=== PATIENT | male | born 1970 | race Caucasian/White ===

== ENCOUNTER 2018-12-27 07:29 | Observation (INO) ==
[2018-12-27] MEDS ORDERED: ZOFRAN IV ONE (07:51)
[2018-12-27] MEDS ORDERED: NS 1,000 ML IV ONE (07:51)
[2018-12-27] MEDS ORDERED: DILAUDID IV ONE (07:58)
--- NOTE | 2018-12-27 08:03 | PROVIDER DOCUMENTATION ---
HPI-Abdominal Pain/GI Problem - General Chief Complaint: Abdominal Pain Stated Complaint: DIARRHEA Time Seen by Provider: 12/27/18 07:33 Source: patient Allergies/Adverse Reactions: Patient Allergies Allergy/AdvReac Type Severity Reaction Status Date / Time moxifloxacin HCl * Allergy ANAPHYLAXIS Verified 04/16/17 06:32 [From Avelox] Home Medications: Home Medication List Medication Instructions Recorded Confirmed Last Taken Type NK [No Home Medications] 04/16/17 04/16/17 Unknown History - History of Present Illness-ABD Nature of Presenting Problems: 48 y/o WM c/o LLQ abdo pain since Thursday. Pt states that his pain is similar to previous flair ups of diverticulitis. Pt denies any vomiting and last BM was this am. Abdominal Pain Onset Location: reports: LLQ Pain Radiation: reports: no radiation Quality of Pain: reports: aching, sharp Severity in ED: reports: moderate Onset/Duration: reports: gradual Timing: reports: still present, getting worse Activities at Onset: reports: light activity Exposure to sick contacts?: No Modifying Factors: improves with: movement, palpation Associated Symptoms: reports: nausea Last BM: this morning Dark Stools Present?: reports: none noticed Rectal Bleeding: reports: none Rectal Pain: reports: none # of Vomiting Episodes: 0 Emesis Description: reports: none Bruising or Bleeding Gums?: No Similar Symptoms Previously?: Yes Recently seen or treated by another doctor?: No Review of Systems - Adult - REVIEW OF SYSTEMS - ADULT Constitutional: reports: no symptoms reported, see HPI Eyes: reports: no symptoms reported, see HPI Ears, Nose, Mouth & Throat: reports: no symptoms reported, see HPI Cardiovascular: reports: no symptoms reported, see HPI Respiratory: reports: no symptoms reported, see HPI Gastrointestinal: reports: see HPI, abdominal pain, nausea Genitourinary: reports: no symptoms reported, see HPI Musculoskeletal: reports: no symptoms reported, see HPI Integumentary: reports: no symptoms reported, see HPI Neurological: reports: no symptoms reported, see HPI Psychiatric: reports: no symptoms reported, see HPI Endocrine: reports: no symptoms reported, see HPI Hematologic/Lymphatic: reports: no symptoms reported, see HPI Allergic/Immunologic: reports: no symptoms reported, see HPI All Other Systems: Reviewed and Negative Past History - Adult - PAST MEDICAL HISTORY-ADULT Review of Records: reports: Nursing Assessment Review, Medications Reviewed, Social history reviewed & non-contributory. Major Childhood Illnesses: reports: denies history Gastrointestinal: reports: GERD - PRIOR SURGERIES/PROCEDURES Surgical/Procedure History: reports: other (nasal sx) - IMMUNIZATION STATUS Childhood Immunizations: See Nurse Assessment Flu Vaccine: See Nurse Assessment Physical Exam-General - PHYSICAL EXAM-ADULT Initial Vital Signs Reviewed: Yes - CONSTITUTIONAL General Appearance: appears well, alert, no apparent distress - EYES Eyes: PERRL/EOMI - HEAD, EARS, NOSE, MOUTH & THROAT HENMT: normocephalic/atraumatic, moist mucous membranes - NECK Neck: non-tender, full range of motion, supple, normal inspection - RESPIRATORY Respiratory: chest non-tender, lungs clear, normal breath sounds, no pleuratic chest pain, no respiratory distress, no accessory muscle use - CARDIOVASCULAR Cardiovascular: normal peripheral pulses, regular rate, rhythm, no edema, no gallop, no JVD, no murmur - GASTROINTESTINAL (ABDOMEN) Abdominal Exam: normal bowel sounds, soft, no organomegaly, no pulsatile mass, tenderness (LLQ abdo pain) - LYMPHATIC Lymphatic: no adenopathy - MUSCULOSKELETAL Back Exam: normal inspection, no CVA tenderness, no vertebral tenderness Extremity: normal range of motion, non-tender, normal gait, normal inspection, no pedal edema, no calf tenderness, normal capillary refill - SKIN Integumentary: normal color, normal turgor - NEUROLOGIC Neurologic: organ builder II-XII nml as tested, grossly normal, no motor/sensory deficits - PSYCHIATRIC Psych/Mental Status: normal mood/affect, normal thought content, normal thought process, oriented x 3 Progress - PLAN OF CARE/RESULTS Progress/Plan/Lab Results: Vital Signs - 8 hr 12/27/18 07:37 Temperature 98 F Pulse Rate 107 H Respiratory Rate 18 Blood Pressure 135/92 Orders Category Date Time Status CT ABD/PELVIS W/IV CONT ONLY [CT] Stat Exams 12/27/18 07:50 Ordered AMYLASE [CHEM] Stat Lab 12/27/18 07:46 Received CBC WITH ELECTRONIC DIFF [HEME] Stat Lab 12/27/18 07:46 Results COMPREHENSIVE METABOLIC PANEL [CHEM] Stat Lab 12/27/18 07:46 Received LIPASE [CHEM] Stat Lab 12/27/18 07:46 Received ua [URINALYSIS PL W/POSS RFLX CULT] [URINALYSIS] Stat Lab 12/27/18 07:33 Uncollected 0.9% Sodium Chloride Inj [Ns] 1,000 ml Med 12/27/18 07:51 Active IV 999 mls/hr Ondansetron [Zofran] Med 12/27/18 07:51 Discontinued 4 mg IV NOW ONE Result Diagrams: 12/27/18 07:46 12/27/18 07:46 - CONSULTS/PCP/HOSPITALIST Notification #1 *Consult/PCP/Hospitalist*: Dr Coleman Time Discussed: 09:50 Consult Disposition: Will see in ED, Admit Departure - Departure Date of Disposition Decision: 12/27/18 Time of Disposition Decision: 09:51 DIAGNOSIS: Acute diverticulitis, HTN (hypertension) Disposition: ADMITTED INPATIENT 09 Certified Medical Emergency: Emergent Condition: Fair Referrals and Follow-Ups: Jr Mendoza MD [Primary Care Provider] - - Critical Care Note This patient required my direct & personal management of CC.: No Attestation - Physician/ OSCAR Attestation Patient care was provided by Advanced Practice Provider:: No The physician spent face to face time with patient:: Yes Advanced Practice Provider documentation review:: Supervising physician onsite and consulted in the evaluation and care of this patient. The physician did have a face to face encounter with the patient.
[2018-12-27 08:10] LABS: AGAP 12; ALBUMIN 4.9 g/dL (3.5-5.0); ALKALINE PHOSPHATASE 88 U/L (32-122); BUN 13 mg/dL (8-22); CHLORIDE 100 mmol/L (98-107); COSMO 283; ESTIMATED GFR > 60; GLUCOSE 125 mg/dL (70-104); GOT 21 U/L (10-34); GPT 34 U/L (10-44); LIPASE 22 U/L (13-60); POTASSIUM 4.6 mmol/L (3.5-5.1); SODIUM 141 mmol/L (136-145); TCO2 29 mmol/L (25-35); TOTAL PROTEIN 7.8 g/dL (6.3-8.3)
[2018-12-27 08:44] LABS: BASO# 0.03 X1000 (0.0-0.2); BASO% 0.2 % (0.0-0.8); EOS# 0.34 X1000 (0.0-0.7); EOS% 2.7 % (0.0-10.0); HEMATOCRIT 44.4 % (42.0-52.0); IMM GRAN# 0.02 X1000 (0.0-0.04); IMM GRAN% 0.2 % (0.0-0.5); LYMPH# 1.64 X1000 (1.2-3.4); LYMPH% 13.2 % (20.5-51.1); MCH 30.9 PG (27-31); MCHC 33.8 g/dL (33-37); MCV 91.5 FL (81-99); MONO# 1.35 X1000 (0.11-0.59); MONO% 10.8 % (1.7-9.3); NEUT# 9.08 X1000 (1.4-6.5); NEUT% 72.9 % (42.2-75.2); PLT 108 X1000 (130-400); RBC 4.85 XMIL (4.7-6.1); RDW 12.7 % (11.5-14.5); WBC 12.46 X1000 (4.8-10.8)
[2018-12-27 08:54] LABS: BILIRUBIN URINE NEGATIVE (NEGATIVE); BLOOD URINE NEGATIVE (NEGATIVE); CLARITY CLEAR (CLEAR); COLOR YELLOW; GLUCOSE URINE NEGATIVE (NEGATIVE); KETONE URINE NEGATIVE (NEGATIVE); LEUKOCYTES URINE NEGATIVE (NEGATIVE); NITRITE URINE NEGATIVE (NEGATIVE); PROTEIN URINE NEGATIVE (NEGATIVE); UROBILINOGEN URINE NORMAL
[2018-12-27 08:58] LABS: URINE BACTERIA 2+ /HFP; URINE EPITHELIAL CELLS <10 /HPF (<10); URINE RBC <10 /HPF (<10); URINE WBC <10 /HPF (<10); URINE YEAST NONE SEEN /HPF
[2018-12-27 08:59] LABS: URINE CAST NONE SEEN /LPF; URINE CRYSTAL NONE SEEN /HPF; URINE SOURCE CLEAN CATCH
--- NOTE | 2018-12-27 09:22 | Diag Imaging Result Doc PS360 ---
EXAM: CT ABD/PELVIS W/IV CONT ONLY HISTORY: LLQ pain. Possible diverticulitis TECHNIQUE: This exam was performed using automated exposure control, adjustment of mA or kV according to patient size, and/or use of iterative reconstruction technique. COMPARISON: None. FINDINGS: Lung bases: Unremarkable. There is focal wall thickening and moderate to marked pericolonic inflammatory change mid descending colon with fluid tracking along the psoas muscle compatible with acute diverticulitis. No evidence for diverticular abscess. No free air. No evidence for bowel obstruction. There is extensive sigmoid diverticulosis. Hepatobiliary: Normal liver attenuation. No intrahepatic or extrahepatic biliary ductal dilatation is identified. No calcified gallstones are seen. No suspicious masses are appreciated. Pancreas/Adrenal glands/Spleen: Normal size and enhancement. No cysts or solid masses are appreciated. Kidneys: No nephrolithiasis or hydronephrosis is appreciated. Normal bilateral enhancement. No suspicious masses. Retroperitoneum: Normal caliber aorta. Mildly prominent retroperitoneal lymph nodes. Appendix: Normal. No evidence for acute appendicitis. No pneumoperitoneum is identified. Pelvis: Reproductive organs show no acute abnormality. Urinary bladder is unremarkable. No lymphadenopathy is identified. There are no inflammatory changes. No acute bony abnormality is demonstrated. IMPRESSION: Moderate to marked acute diverticulitis descending colon. No evidence for diverticular abscess. Electronically signed by Rose Mccall 12/27/2018 9:19 AM
[2018-12-27] MEDS ORDERED: FLAGYL 500 MG/NS 500 MG/100 ML IVPB IV ONE (09:32)
[2018-12-27] MEDS ORDERED: TYLENOL PO PRN (10:21)
[2018-12-27] MEDS ORDERED: NS 1,000 ML IV PRN (10:21)
[2018-12-27] MEDS ORDERED: LEVAQUIN 750 MG/D5W 750 MG/150 ML IVPB IV SCH (10:30)
[2018-12-27] MEDS: ZOSYN 3.375 GM in NS 50 ML IV SCH ×3 (11:25→22:23)
[2018-12-27] MEDS ORDERED: PERICOLACE PO ONE (12:21)
[2018-12-27] MEDS: ZOFRAN IV PRN ×2 (12:45→17:32)
[2018-12-27] MEDS ORDERED: FLU VACCINE IM ONE (12:45)
[2018-12-27] MEDS: DILAUDID IV PRN ×2 (12:46→17:32)
[2018-12-27] MEDS: PRILOSEC PO SCH ×2 (12:46→20:11)
[2018-12-27] MEDS: NS 1,000 ML IV SCH (12:47)
--- NOTE | 2018-12-27 13:04 | HISTORY AND PHYSICAL ---
PRIMARY CARE PROVIDER: Dr. Jr Mendoza. CHIEF COMPLAINT: Abdominal pain and constipation. HISTORY OF PRESENT ILLNESS: Mr. Chucky Hendrix is a 48-year-old male with a medical history of diverticulitis. He states he gets around about at least every 6 months. He does tend to consume fruits and nuts, and healthy protein shakes. He also has seasonal allergies and hyperlipidemia, but comes in with complaints of at least 5 days worth of left lower quadrant abdominal pain. He states for the last 3 days he has had very small minute constipated type bowel movements. He did have some chills today and imaging reveals that he has descending colon diverticulitis, so we will admit, give him IV fluids, start him on antibiotics. PAST MEDICAL HISTORY: 1. Hyperlipidemia. 2. Seasonal allergies. 3. Diverticulitis every 6 months. SURGICAL HISTORY: Sinus surgery. SOCIAL HISTORY: Quit smoking in 2003. He smoked for 15 years anywhere from 1 to 2 packs per day. He drinks alcohol 5 days a week, usually just 1 glass of red wine with chocolate before he goes to bed. If he drinks beers, it is usually during a ball game and it is six-pack of beer. He denies illicit drug use. He is self-employed and owns a body shop. FAMILY HISTORY: Mother's side of the family, had grandmother that had a stroke. His father had high cholesterol. He had a brother who had testicular cancer. ALLERGIES: Moxifloxacin. HOME MEDICATIONS: None. REVIEW OF SYSTEMS: Fourteen point review of systems are complete and all were negative except for those mentioned above in HPI. He denied any nausea or vomiting. Just the constipation, left lower quadrant abdominal pain along with the chills. PHYSICAL EXAMINATION: VITAL SIGNS: Temperature is 98.9 degrees, heart rate 86, respiratory rate 18, blood pressure 135/85, O2 saturation 95% on room air. GENERAL: Mr. Chucky Hendrix is a 48-year-old male. He is in no acute distress. He is able to answer questions appropriately. HEENT: Atraumatic, normocephalic. Pupils equal, round, reactive to light. Extraocular movements intact. Mucous membranes are dry. NECK: Trachea midline. CARDIOVASCULAR: S1, S2. Regular rate and rhythm. No rubs, gallops, murmurs. No lower extremity edema. +2 dorsalis and radial pulses. Negative JVD or carotid bruits. PULMONARY: Clear to auscultate, bilateral breath sounds. No accessory muscle use or work of breathing noted. GASTROINTESTINAL: Soft, tender in the left lower quadrant. Positive bowel sounds x4. Soft. EXTREMITIES: Moves all extremities equally. Full range of motion. NEUROLOGIC: N and O x3. Follows commands. Sensory is intact. SKIN: Warm, dry, intact. LABORATORY DATA: White blood cells 12,000, hemoglobin 15, hematocrit 44, platelet count 108,000. Sodium 141, potassium 4.6, BUN 13, creatinine is 1.0, glucose 125, calcium 10.1, bilirubin 0.70, AST 21, ALT 34, albumin 4.9, amylase 72, lipase 22. Urinalysis negative. IMAGING: Abdominal pelvic CT, moderate to marked acute diverticulitis of the descending colon. No abscess. ASSESSMENT AND PLAN: 1. Acute diverticulitis of the descending colon. He is going to be on Zosyn and Flagyl, Dilaudid for pain control, IV fluids to hydrate. He can have clear liquids. Advance as tolerated. 2. Constipation. We will start him on Ragini-Colace. 3. Hyperlipidemia, on no home medications. 4. Seasonal allergies. Home medications have been listed for that as well. 5. Deep venous thrombosis prophylaxis, SCDs. Dictated by MONIQUE Cullen for Ede Coleman MD cc: MONIQUE Cullen MD
[2018-12-27] MEDS: FLAGYL 500 MG/NS 500 MG/100 ML IVPB IV SCH (18:44)
[2018-12-27] MEDS: PERICOLACE PO SCH (20:11)
--- NOTE | 2018-12-27 21:31 | HISTORY AND PHYSICAL ---
ADDENDUM: Patient seen and examined by myself. Full note dictated and discussed with nurse practitioner. Patient presented to the hospital with abdominal pain, cramping. He has never had symptoms like this before. Notes that his left lower quadrant started hurting a couple of days ago, but much more severe yesterday. Therefore, he came to the ER today. I am going to admit him to the hospital, treat him for diverticulitis, place him on antibiotics, fluids, pain control and will follow. Please see full note. cc: Ede Coleman MD
[2018-12-28] MEDS: NS 1,000 ML IV SCH ×3 (00:59→13:22)
[2018-12-28] MEDS: FLAGYL 500 MG/NS 500 MG/100 ML IVPB IV SCH ×3 (01:07→18:17)
[2018-12-28] MEDS: ZOSYN 3.375 GM in NS 50 ML IV SCH ×4 (04:15→22:09)
[2018-12-28 06:30] LABS: INR 0.95; PROTIME 13.2 Seconds (11.0-16.0)
[2018-12-28 06:31] LABS: PTT 29.6 Seconds (22.3-41.8)
[2018-12-28 06:36] LABS: AGAP 10; ALBUMIN 3.8 g/dL (3.5-5.0); ALKALINE PHOSPHATASE 71 U/L (32-122); BUN 9 mg/dL (8-22); CALCIUM 8.9 mg/dL (8.8-10.2); CHLORIDE 101 mmol/L (98-107); COSMO 269; CREATININE 0.9 mg/dL (0.7-1.2); ESTIMATED GFR > 60; GLUCOSE 111 mg/dL (70-104); GOT 13 U/L (10-34); GPT 21 U/L (10-44); POTASSIUM 4.2 mmol/L (3.5-5.1); SODIUM 135 mmol/L (136-145); TCO2 25 mmol/L (25-35); TOTAL PROTEIN 6.5 g/dL (6.3-8.3)
[2018-12-28 07:07] LABS: BASO# 0.02 X1000 (0.0-0.2); BASO% 0.2 % (0.0-0.8); EOS# 0.29 X1000 (0.0-0.7); EOS% 3.3 % (0.0-10.0); HEMATOCRIT 38.6 % (42.0-52.0); IMM GRAN# 0.02 X1000 (0.0-0.04); IMM GRAN% 0.2 % (0.0-0.5); LYMPH# 1.39 X1000 (1.2-3.4); LYMPH% 15.6 % (20.5-51.1); MCH 30.9 PG (27-31); MCHC 33.7 g/dL (33-37); MCV 91.7 FL (81-99); MONO# 0.97 X1000 (0.11-0.59); MONO% 10.9 % (1.7-9.3); MPV 10.6 FL (7.4-10.4); NEUT# 6.23 X1000 (1.4-6.5); NEUT% 69.8 % (42.2-75.2); PLT 98 X1000 (130-400); RBC 4.21 XMIL (4.7-6.1); RDW 12.2 % (11.5-14.5); WBC 8.92 X1000 (4.8-10.8)
[2018-12-28] MEDS: PRILOSEC PO SCH ×2 (09:38→21:43)
[2018-12-28] MEDS: PERICOLACE PO SCH ×2 (09:38→21:43)
--- NOTE | 2018-12-28 14:00 | PROGRESS NOTE ---
DATE: 12/28/2018 SUBJECTIVE: The patient reports abdominal pain is getting better. He is refusing Dilaudid because he said that he is going to get constipated, no other complaints other than that. OBJECTIVE: Vital Signs: Temperature 98.9 degrees, heart rate 87, respiratory rate 16, blood pressure 119/73, O2 saturation 97% on room air. General Examination: This is a 48-year-old male, lying in bed, in no acute distress. Cardiovascular: S1, S2 heard. No murmurs, gallops, or rubs. Regular rate and rhythm. Respiratory: Clear bilaterally to auscultation. No work of breathing or using accessory muscles. Abdomen: Soft, a little bit tender to palpation diffusely. No signs of peritoneal irritation. Extremities: No clubbing, cyanosis, or edema. Peripheral pulses present in both legs. Neurologic: The patient is alert and oriented x3. Moves all 4 extremities. LABORATORY DATA: White cell count 8000. BMP unremarkable. ASSESSMENT AND PLAN: 1. Acute diverticulitis. The patient continues with Zosyn, and also, we are going to add Toradol for pain control. White cell count is back to normal. We are going to advance his diet to GI soft diet. 2. Constipation. We will continue with Ragini-Colace and we will try MiraLAX if needed. 3. Hyperlipidemia. We will continue with home medications. 4. Disposition. I think this patient is doing much better. If he does tolerate a GI soft diet I guess tomorrow we can advance the diet to regular diet and discharge this patient. cc: Melchor Mckeon MD
[2018-12-28] MEDS: TORADOL IV SCH ×2 (14:14→19:52)
[2018-12-28] MEDS: MIRALAX PO SCH ×2 (17:19→21:43)
[2018-12-29] MEDS: FLAGYL 500 MG/NS 500 MG/100 ML IVPB IV SCH ×2 (01:12→11:12)
[2018-12-29] MEDS: TORADOL IV SCH ×3 (01:12→11:11)
[2018-12-29] MEDS: NS 1,000 ML IV SCH ×2 (01:12→11:11)
[2018-12-29] MEDS: ZOSYN 3.375 GM in NS 50 ML IV SCH (04:10)
[2018-12-29 05:56] LABS: AGAP 10; ALBUMIN 3.7 g/dL (3.5-5.0); ALKALINE PHOSPHATASE 65 U/L (32-122); BUN 9 mg/dL (8-22); CHLORIDE 106 mmol/L (98-107); COSMO 281; CREATININE 0.9 mg/dL (0.7-1.2); ESTIMATED GFR > 60; GLUCOSE 120 mg/dL (70-104); GOT 14 U/L (10-34); GPT 19 U/L (10-44); MAGNESIUM 2.2 mg/dL (1.5-2.7); POTASSIUM 4.4 mmol/L (3.5-5.1); SODIUM 141 mmol/L (136-145); TCO2 25 mmol/L (25-35); TOTAL PROTEIN 6.5 g/dL (6.3-8.3)
[2018-12-29 06:24] LABS: BASO# 0.03 X1000 (0.0-0.2); BASO% 0.5 % (0.0-0.8); EOS% 5.3 % (0.0-10.0); HEMOGLOBIN 12.8 g/dL (14.0-18.0); IMM GRAN# 0.01 X1000 (0.0-0.04); IMM GRAN% 0.2 % (0.0-0.5); LYMPH% 21.2 % (20.5-51.1); MCH 30.8 PG (27-31); MCHC 33.7 g/dL (33-37); MCV 91.3 FL (81-99); MONO# 0.62 X1000 (0.11-0.59); MPV 10.9 FL (7.4-10.4); NEUT# 3.49 X1000 (1.4-6.5); NEUT% 61.8 % (42.2-75.2); PLT 92 X1000 (130-400); RBC 4.16 XMIL (4.7-6.1); RDW 12.2 % (11.5-14.5); WBC 5.65 X1000 (4.8-10.8)
[2018-12-29 06:30] VITALS: BP 110/76
[2018-12-29] MEDS ORDERED: PRILOSEC PO SCH (07:00)
[2018-12-29] MEDS: MIRALAX PO SCH (11:11)
[2018-12-29] MEDS: PERICOLACE PO SCH (11:11)
--- NOTE | 2018-12-30 13:52 | DISCHARGE SUMMARY ---
ADMISSION DATE: 12/27/2018 DISCHARGE DATE: 12/29/2018 ADMISSION DIAGNOSES: 1. Acute diverticulitis of the descending colon. 2. Constipation. 3. Hyperlipidemia. 4. Seasonal allergies. DISCHARGE DIAGNOSES: 1. Acute diverticulitis. 2. Constipation. 3. Hyperlipidemia. CONSULTATIONS: None. SURGERIES AND PROCEDURES: None. HOSPITAL COURSE: Mr. Chucky Hendrix is a 48-year-old, male with a medical history of diverticulitis. He presented to the emergency department here at [facility] on 12/27/2018 with complaints of same symptoms he gets about every 6 months. He does tend to consume fruits and nuts with his healthy protein shakes but apparently, he had complaints of 5 days' worth of left lower quadrant abdominal pain that had worsened over the 12 hours prior to admission. Very small bowel movements. Had chills. He was started on IV fluids and IV antibiotics. For the constipation, he was started on Ragini-Colace and MiraLAX as needed. Continued on his statin. Advanced his diet to a GI soft and is stable for discharge home today. During his stay, he did have one bowel movement. DISCHARGE VITAL SIGNS: Temperature 100 degrees but that is the only fever he has had. Every other one of them has been normal. Heart rates 125 and he has been running in the 80s the whole time, O2 saturation 94% on room air. He will be going home with cefdinir and Flagyl p.o. DISCHARGE LAB DATA: White blood cells 5000, hemoglobin 12, hematocrit 38, platelet count 92,000. Sodium 141, potassium 4.4, BUN 9, creatinine 0.9, glucose 120, calcium 9.0. Bilirubin 0.50, AST 14, ALT 19, albumin is 3.7. Urine negative. IMAGING: Most pertinent, abdominal and pelvic CT which showed moderate to marked acute diverticulitis of descending colon. That was the only imaging. DISCHARGE DIET: GI soft. DISCHARGE ACTIVITY: As tolerated. DISCHARGE INSTRUCTIONS: If your condition changes, contact physician and/or return to the emergency department. Changes may include, but are not limited to shortness of breath, increased fatigue, excessive bleeding, unexplained weight loss or gain, unmanageable pain, signs or symptoms of infection. DISCHARGE PHYSICIAN FOLLOWUP: Dr. Jr Mendoza. DISCHARGE DISPOSITION: Home. Dictated by MONIQUE Cullen for Melchor Mckeon MD Addendum: Patient seen and examined by myself. Agree with MONIQUE note. It reflects my assessment and plan. Patient is being released in stable condition to home. Will be seen by his GI doctor in 4 weeks. cc: MONIQUE Cullen MD [facility]
== END 2018-12-29 11:45 | disposition home or self-care (01) ==
LOC: P.ED 07:29 → P.MEDSURG 11:06 → INTOOBSV 11:06 → SUATTDRO 11:06 → P.MEDSURG 11:07
PROVIDERS: ATTEND Internal Medicine